=== PATIENT | female | born 1985 | race Hispanic/Latino ===

== ENCOUNTER 2024-03-03 02:05 | Emergency (ER) | payer SELFPAY ==
[2024-03-03] MEDS ORDERED: DERMABOND SKIN ADHESIVE TOP ONE (02:22)
[2024-03-03] MEDS ORDERED: NA CHLORIDE 0.9% 1,000 ML ONE (02:27)
[2024-03-03] MEDS ORDERED: MORPHINE 2 MG/ML SYR ONE ×2 (02:45→04:06)
[2024-03-03 02:59] LABS: Absolute Basophils 0.1 K/uL (0-0.5); Absolute Eosinophils 0.1 K/uL (0-0.5); Absolute Lymphocytes (CBC) 1.9 K/uL (0.7-4.9); Absolute Monocytes 0.6 K/uL (0.1-1.3); Basophils % 0.6 % (0-1.3); Eosinophils % 1.4 % (0-4.4); Hematocrit 45.6 % (36.0-45.0); Hemoglobin 15.1 g/dL (12.0-15.0); Lymphocytes % 17.4 % (15.3-44.8); MCH 33.4 pg (27.0-35.0); MCV 101.1 fL (80-100); MPV 9.2 fL (7.6-11.3); Neutrophils % 74.6 % (41.7-73.7); Platelets 239 thou/uL (152-406); RBC Red Blood Cell Count 4.51 M/uL (3.86-4.86); Red Cell Distribution Width 12.9 % (12.1-15.2)
[2024-03-03 03:05] LABS: Anion Gap 11.4 mEq/L (5.0-15.0); Potassium 3.4 mEq/L (3.5-5.1)
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
[2024-03-03] MEDS ORDERED: ONDANSETRON 4 MG/2 ML VIAL ONE (04:38)
[2024-03-03] MEDS ORDERED: NA CHLORIDE 0.9% 500 ML ONE (04:38)
--- NOTE | 2024-03-03 04:54 | RAD REPORT ---
CLINICAL HISTORY: Pain. COMPARISON: None. TECHNIQUE: XR HAND 3 OR MORE VIEWS LEFT 03/03/2024 2:32 AM [employer] FINDINGS: There is a mildly angulated fracture of the proximal shaft of the proximal fifth phalanx. Joint space s are preserved. Soft tissues are unremarkable. IMPRESSION: Fifth digit fracture. Electronically signed by: Alvarez Alvarez MD 03/03/2024 04:34 AM [employer] RP Due to temporary technical issues with the PACS/[employer] reporting system, reports are being candace d by the in-house radiologist without review as a courtesy to ensure prompt reporting the interpreting radiologist is fully responsible for the content of the report. Transcribed Date/Time: 03/03/2024 4:53 AM
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
[2024-03-03] MEDS ORDERED: POTASSIUM 25 MEQ EFFERV TAB ONE (05:39)
[2024-03-03 08:18] VITALS: TEMP 98.7
[2024-03-03 08:22] VITALS: BP 119/70; O2SAT 100
== END 2024-03-03 06:04 | disposition home or self-care (01) ==
LOC: ER 02:05
PROC: 2W3KX1Z Immobilization of Left Finger using Splint (ICD-10-PCS; principal; 2024-03-03)
DX: Z04.71 Encounter for examination and observation following alleged adult physical abuse (principal); S01.81XA Laceration without foreign body of other part of head, initial encounter; S62.617A Displaced fracture of proximal phalanx of left little finger, initial encounter for closed fracture
CPT/HCPCS: 12011; 36415; 70450; 70486; 72125; 76377; 80048; 84703; 85025; 86850; 86900; 86901; 96361; 96374; 96375; 99285; J2270; J2405; J7030; J7040

== ENCOUNTER 2024-03-05 05:39 | Emergency (ER) | payer SELFPAY ==
[2024-03-05] MEDS ORDERED: KETOROLAC 30 MG/ML INJ ONE (06:08)
[2024-03-05] MEDS ORDERED: DIPHENHYDRAMINE 50 MG/ML VIAL ONE (06:08)
[2024-03-05] MEDS ORDERED: METOCLOPRAMIDE 10 MG/2mL INJ ONE (06:09)
--- NOTE | 2024-03-05 07:23 | RAD REPORT ---
EXAM: CT brain without contrast HISTORY: head injury COMPARISON: None TECHNIQUE: Multiple contiguous axial images were obtained and a CT of the brain without contrast. Sag ittal and coronal reformats were performed. FINDINGS: No evidence of hydrocephalus, intracranial hemorrhage, or extra-axial fluid collection. The brain is normal in morphology. The calvarium is intact. The visualized paranasal sinuses and mastoid air cells are essentially clear . Right periorbital and frontal scalp, left parieto-occipital scalp, as well as left cheek soft tissue swelling and hematomas. IMPRESSION: No evidence of acute intracranial abnormality. Facial and scalp swelling and hematomas as above. EXAM: CT of the cervical spine without contrast HISTORY: head injury COMPARISON: None TECHNIQUE: Multiple contiguous axial images were obtained in a CT of the cervical spine without contr ast. Sagittal and coronal reformats were performed. FINDINGS: The vertebral bodies demonstrate normal height and alignment. Straightening of normal cervi mónica lordosis which may be positional or secondary to muscle spasm. No evidence of acute fracture or subluxation.. No degenerative changes are present. No prevertebral soft tissue swelling is seen. The posterior facets are well aligned. Normal alignment of the skull base with the cervical spine is seen. The lung apices are unremarkable. IMPRESSION: No evidence of acute osseous abnormality of the cervical spine.
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
[2024-03-05 12:22] VITALS: TEMP 98.4
[2024-03-05 12:23] VITALS: BP 126/75
[2024-03-05 12:25] VITALS: O2SAT 99
== END 2024-03-05 07:44 | disposition home or self-care (01) ==
LOC: ER 05:39
DX: R51.9 Headache, unspecified (principal); F07.81 Postconcussional syndrome
CPT/HCPCS: 70450; 72125; 96374; 96375; 99284; J1200; J2765